=== PATIENT | female | born 1945 | race Caucasian/White ===

== ENCOUNTER → 2016-12-23 | Outpatient (CLI) | payer MEDICARE ==
[~2016-12-23] MED LIST: ESTR0.5T3 PO; MULT-974 PO; NFBIOT1000 PO; NIAC-4 PO; ROSU5TAB PO
== END ==
LOC: CARD 10:54
PROVIDERS: ATTEND Internal Medicine Cardiovascular Disease
DX: I34.1 Nonrheumatic mitral (valve) prolapse (principal); E78.4 Other hyperlipidemia; Z78.9 Other specified health status
CPT/HCPCS: 93306

== ENCOUNTER → 2016-12-29 | Outpatient (CLI) | payer MEDICARE ==
--- NOTE | 2016-12-30 22:25 | Diagnostic Imaging Report ---
INDICATION: Digital mammogram bilateral screening with tomosynthesis. This study was compared to prior exams of 12/29/15, 12/26/14 and 12/25/13. At this time, there are no current complaints. The current study was also evaluated with a Computer Aided Detection (CAD) system. FINDINGS: The fibroglandular tissue in both breasts is dense. This does limit the sensitivity of this exam. Overall, there does not appear to have been any significant change when compared to the prior study. No primary or secondary sign of malignancy is noted. IMPRESSION: There is no radiographic evidence for malignancy. ACR BI-RADS Category 1: Negative. Result letter will be mailed to the patient. Note: At least 10% of breast cancer is not imaged by mammography. Dictated by: Dictated on workstation # [id number]
== END ==
LOC: RAD 09:14
PROVIDERS: ATTEND Nurse Practitioner Family
DX: Z12.31 Encounter for screening mammogram for malignant neoplasm of breast (principal)
CPT/HCPCS: 77067

== ENCOUNTER → 2018-01-04 | Outpatient (CLI) | payer MEDICARE ==
--- NOTE | 2018-01-04 14:30 | Diagnostic Imaging Report ---
INDICATION: Routine screening. COMPARISON: 12/29/2016 and 12/29/2015. TECHNIQUE: 2D and 3D bilateral screening mammography was performed with CAD. FINDINGS: Both breasts are heterogeneously dense, limiting the sensitivity of mammography. Scattered benign-appearing calcifications are identified bilaterally. No mass or malignant appearing microcalcifications are seen. The axillae are unremarkable. IMPRESSION: No mammographic features suspicious for malignancy are identified. ACR BI-RADS Category 2: Benign findings. Result letter will be mailed to the patient. Note: At least 10% of breast cancer is not imaged by mammography. Dictated by: Dictated on workstation # [id number]
== END ==
LOC: RAD 08:00
PROVIDERS: ATTEND Nurse Practitioner Family
DX: Z12.31 Encounter for screening mammogram for malignant neoplasm of breast (principal)
CPT/HCPCS: 77067

== ENCOUNTER → 2019-01-12 | Outpatient (CLI) | payer MEDICARE ==
--- NOTE | 2019-01-12 16:28 | Diagnostic Imaging Report ---
INDICATION: Routine screening. COMPARISON: Comparison is made with prior mammograms from 01/04/2018 and 12/29/2016. TECHNIQUE: 2-D and 3-D bilateral screening mammography was performed. The current study was also evaluated with a Computer Aided Detection (CAD) system. 3-D tomosynthesis was also performed and reviewed. FINDINGS: Both breasts are heterogeneously dense, limiting the sensitivity of mammography. Scattered benign-appearing calcifications are noted. No mass or malignant-appearing microcalcifications are seen. The axillae are unremarkable. IMPRESSION: No mammographic features suspicious for malignancy are identified. ACR BI-RADS Category 2: Benign findings. Result letter will be mailed to the patient. Note: At least 10% of breast cancer is not imaged by mammography. Dictated by: Dictated on workstation # [id number]
== END ==
LOC: RAD 09:34
PROVIDERS: ATTEND Nurse Practitioner Family
DX: Z12.31 Encounter for screening mammogram for malignant neoplasm of breast (principal)
CPT/HCPCS: 77067

== ENCOUNTER → 2020-02-04 | Outpatient (CLI) | payer MEDICARE ==
--- NOTE | 2020-02-04 11:09 | Diagnostic Imaging Report ---
INDICATION: Routine screening. COMPARISON: 01/12/2019 and 01/04/2018. TECHNIQUE: 2D and 3D bilateral screening mammography was performed with CAD. FINDINGS: Both breasts are heterogeneously dense, limiting the sensitivity of mammography. There are benign calcifications in both breasts. No dominant mass or malignant appearing microcalcifications are seen. The axillae are unremarkable. IMPRESSION: No mammographic features suspicious for malignancy are identified. ACR BI-RADS Category 2: Benign findings. Result letter will be mailed to the patient. Note: At least 10% of breast cancer is not imaged by mammography. Dictated by: Dictated on workstation # [id number]
== END ==
LOC: RAD 08:22
PROVIDERS: ATTEND Nurse Practitioner Family
DX: Z12.31 Encounter for screening mammogram for malignant neoplasm of breast (principal)
CPT/HCPCS: 77063; 77067

== ENCOUNTER 2020-05-07 05:30 | Outpatient (RCR) | payer MEDICARE ==
[~2020-05-07] VITALS: Ht 160 cm; Wt 63.6 kg
[~2020-05-07 05:30] MED LIST changes: +ASCO500C17 PO; +CHOL100045 PO; +ESTR0.5T PO; +GLUC-173 PO; +MULT-1136 PO; +TURM538C PO
== END 2020-05-07 10:09 | disposition home or self-care (01) ==
LOC: PREOP 05:30
PROVIDERS: ATTEND Internal Medicine
DX: Z01.812 Encounter for preprocedural laboratory examination (principal); Z12.11 Encounter for screening for malignant neoplasm of colon; Z80.0 Family history of malignant neoplasm of digestive organs; Z86.010 Personal history of colon polyps
CPT/HCPCS: 87635

== ENCOUNTER 2020-05-09 07:54 | Day surgery (SDC) | payer MEDICARE ==
--- NOTE | 2020-04-29 09:15 | HISTORY AND PHYSICAL ---
DATE OF SERVICE: COLONOSCOPY HISTORY AND PHYSICAL HISTORY OF PRESENT ILLNESS: The patient is a 75-year-old white female referred by Dr. Mckeon for surveillance colonoscopy. Her father was diagnosed with colon cancer at age of 59. She has had some past adenomas removed. I last performed colonoscopy on her in 09/2013 at which time she had a hyperplastic polyp removed from the rectosigmoid junction. There was a polypoidal looking area at the hepatic flexure, but it turned out to be some nonspecific inflammation with a benign lymph node aggregates. The patient reports that generally she has been feeling well. She has had arthroscopic knee surgery in 10/2013 on the right, in 10/2019 on the left, both for meniscal tears. She has had no other surgical procedures over the last 6 years. PAST MEDICAL HISTORY: Significant for hyperlipidemia and past hypertension. Currently, she is not taking any medication for high blood pressure, but does see Dr. Alfaro. She has mitral valve prolapse without murmur. She has no known history of coronary artery disease. MEDICATIONS ON ADMISSION: Include estradiol 0.25 mg daily, Crestor 2.5 mg daily, turmeric daily, glucosamine chondroitin daily, vitamin C 500 mg daily, and vitamin D 5000 units daily. FAMILY HISTORY: Most pertinent for father who was diagnosed with colon cancer at the age of 59, not aware of any other family history for colon cancer. PHYSICAL EXAMINATION: GENERAL: Reveals a white female appeared to be in no acute distress, appearing younger than her stated age. VITAL SIGNS: Weight 145.6 pounds, stable. Initial blood pressure 164/92, when repeated 140/82. HEENT: Unremarkable. Mallampati I oropharyngeal configuration. Oral cavity clear. CHEST: Clear to auscultation. CARDIOVASCULAR: Revealed a regular rate and rhythm without murmur, S3 or S4. ABDOMEN: Soft, supple without mass, organomegaly or tenderness. EXTREMITIES: Reveal no cyanosis, clubbing or edema. ASSESSMENT AND PLAN: The patient was set up for surveillance colonoscopy on 05/09. She reports that she has been intolerant to previous prep due to the taste which led to nausea, so we will be utilizing the MiraLax prep, which I think she had last time and tolerated well. She has nausea with narcotics frequently, so we will be in listing anesthesia for Diprivan based anesthesia. I thank you for the referral of this pleasant lady. Job ID: [id number] DocumentID: [id number] Dictated Date: 04/21/2020 15:44:23 Customer Quality Specialist Date: 04/21/2020 16:00:19 Dictated By: WINSTON FORBES MD
[~2020-05-09] VITALS: Ht 160 cm; Wt 63.6 kg
[2020-05-09] MEDS ORDERED: LACTATED RINGERS 1,000 ML IV ONE (08:03)
--- NOTE | 2020-05-09 08:12 | Pre-Op Note & Conscious Sedat ---
Pre-Operative Progress Note H&P Reviewed The H&P was reviewed, patient examined and no changes noted. Date H&P Reviewed: May 09, 2020 Time H&P Reviewed: 08:12 Conscious Sedation Pre-Proced ASA Score 2 For ASA 3 and 4: Consider anesthesia and medical clearance. Also, for patients with a history of failed moderate sedation consider anesthesia. Airway Lungs Heart ASA score ASA 1: a normal healthy patient ASA 2: a patient with a mild systemic disease (mid diabetes, controlled hypertension, obesity ASA 3: a patient with a severe systemic disease that limits activity (angina, COPD, prior Myocardial infarction) ASA 4: a patient with an incapacitating disease that is a constant threat to life (CHF, renal failure) ASA 5: a moribund patient not expected to survive 24 hrs. (ruptured aneurysm) ASA 6: a declared brain- patient whose organs are being harvested. For emergent operations, add the letter E after the classification Mallampati Classification Grade 2 Sedation Plan Analgesia, Amnesia, Plan communicated to team members, Discussed options with patient/fam, Discussed risks with patient/fam The patient is an appropriate candidate to undergo the planned procedure, sedation, and anesthesia. The patient immediately re-assessed prior to indication. WINSTON FORBES MD May 09, 2020 08:12
[2020-05-09] MEDS ORDERED: LACTATED RINGERS 1,000 ML IV STA (08:14)
[2020-05-09] MEDS ORDERED: LIDOCAINE JELLY 2% 6 ML SYRINGE MM PRN (08:15)
[2020-05-09 08:20] VITALS: BP 103/58
[2020-05-09] MEDS ORDERED: LIDOCAINE JELLY 2% 6 ML SYRINGE ONE (09:23)
[2020-05-09] MEDS ORDERED: proPOfol 200 MG/20 ML (DIPRIVAN) VIAL IV ONE (09:24)
[2020-05-09 10:09] VITALS: BP 89/60
[2020-05-09 10:14] VITALS: BP 97/57
--- NOTE | 2020-05-09 10:17 | Anesthesia-General Post-Op ---
MAC Patient Condition Mental Status/LOC: Same as Preop Cardiovascular: Satisfactory Nausea/Vomiting: Absent Respiratory: Satisfactory Pain: Controlled Complications: Absent Post Op Complications Complications None Follow Up Care/Instructions Patient Instructions None needed. Anesthesiology Discharge Order Discharge Order Patient is doing well, no complaints, stable vital signs, no apparent adverse anesthesia problems. CHIOMA MOSCOSO DO May 09, 2020 10:17
[2020-05-09 10:20] VITALS: BP 104/60
[2020-05-09 10:50] VITALS: BP 107/69
[2020-05-09 11:15] VITALS: BP 107/69
--- NOTE | 2020-05-09 16:45 | OPERATIVE REPORT ---
DATE OF SERVICE: COLONOSCOPY SUMMARY INDICATION FOR THE PROCEDURE: Screening colonoscopy, family history of colon cancer. DESCRIPTION OF PROCEDURE: The patient was placed in the left lateral decubitus position. Prior to undergoing colonoscopy, digital rectal evaluation was performed. Anal sphincter tone was normal and the perianal reflexes intact. No abnormalities were noted on digital inspection of the anal canal or distal rectal vault. The colonoscope was then inserted into the rectum and under direct visualization advanced to the cecum. The cecum was identified by identification of the ileocecal valve and cecal strap. Photographic documentation was obtained. Quality of prep was good. Procedure was done under Diprivan anesthesia. FINDINGS: There was no evidence for internal or external hemorrhoids. Present in the distal rectum was a diminutive 3 x 5 mm sessile polyp. It was biopsied and ablated and submitted for histopathology with no significant blood loss. Remainder of the rectum, sigmoid colon, descending colon, transverse colon, ascending colon and cecum were unremarkable. No evidence for diverticular disease or other abnormalities were noted. ASSESSMENT: One diminutive polyp was removed from the distal rectum. If this does not return to vendor to be in the adenoma family, it is debatable as to whether or not repeat surveillance colonoscopy in 5 years would be recommended. It will be pending patient's overall health. I thank you for the referral of this pleasant lady. Job ID: [id number] DocumentID: [id number] Dictated Date: 05/09/2020 10:29:56 Class B Driver Date: 05/09/2020 16:45:03 Dictated By: WINSTON FORBES MD
== END 2020-05-09 11:15 | disposition home or self-care (01) ==
LOC: ENDO 07:54
PROVIDERS: ATTEND Internal Medicine
DX: Z12.11 Encounter for screening for malignant neoplasm of colon (principal); K62.1 Rectal polyp; I10 Essential (primary) hypertension; E78.5 Hyperlipidemia, unspecified; Z79.899 Other long term (current) drug therapy; Z80.0 Family history of malignant neoplasm of digestive organs
CPT/HCPCS: 88305

== ENCOUNTER → 2020-10-17 | Outpatient (CLI) | payer MEDICARE | LOC: CARD 13:47 | PROVIDERS: ATTEND Nurse Practitioner Family | DX: I08.0 Rheumatic disorders of both mitral and aortic valves (principal) | CPT/HCPCS: 93306 ==

== ENCOUNTER → 2021-02-17 | Outpatient (CLI) | payer MEDICARE ==
[~2021-02-17] MED LIST changes: +CHOL10004 PO; -CHOL100045 PO
--- NOTE | 2021-02-17 09:17 | Diagnostic Imaging Report ---
INDICATION: 75 year-old asymptomatic postmenopausal female. COMPARISON: 11/28/2008 FINDINGS: AP Spine L1-L4: [BMD (g/cm2): 1.109] [T-Score: -0.8] [Z-Score: 1.1] [BMD Previous: 1.233] [BMD % Change: -10.1] LT Hip Neck: [BMD (g/cm2): 0.831] [T-Score: -1.5] [Z-Score: 0.6] LT Hip Total: [BMD (g/cm2):0.932] [T-Score:-0.6] [Z-Score: 1.3] [BMD Previous: 1.024] [BMD % Change: -9.0] RT Hip Neck: [BMD (g/cm2):0.840] [T-Score:-1.4] [Z-Score:0.7] RT Hip Total: [BMD (g/cm2):0.928] [T-score:-0.6] [Z-Score:1.3] [BMD Previous:1.004] [BMD % Change:-7.6] *Indicates significant change from prior examination based on 95% confidence level. World Health Organization criteria for BMD interpretation classify patients as Normal (T-score at or above -1.0), Osteopenic (T-score between -1.0 and -2.5) or Osteoporotic (T-score at or below -2.5). LIMITATIONS AND MODIFICATION: None. FRACTURE RISK (FRAX SCORE): The ten year probability of (%): Major Osteoporotic Fracture: [12.6] Hip Fracture: [2.9] IMPRESSION: 1. Osteopenia (Low bone mass). 2. No statistically significant change in bone mineral density since prior examination. 3. See below National Osteoporosis Foundation guidelines on when to potentially initiate pharmacologic therapy. Based on the National Osteoporosis Foundation Guidelines, pharmacologic treatment should be initiated in any of the following, unless clinical conditions suggest otherwise: * Any patient with prior fragility fracture of the hip or vertebrae. A spine fracture indicates 5X risk for subsequent spine fracture and 2X risk for subsequent hip fracture. * Osteoporosis (T-score <-2.5). * Postmenopausal women and men age 50 and older with low bone mass/osteopenia (T-score between -1.0 and -2.5) by DXA and 10-year major osteoporotic fracture greater than 20% or a 10-year probability of hip fracture greater than 3%. These fracture risks are supplied above in the FRAX score, if applicable. * Clinician judgement and/or patient preferences may indicate treatment for people with 10-year fracture probabilities above or below these levels. Dictated by: Dictated on workstation # [id number]
--- NOTE | 2021-02-17 14:40 | Diagnostic Imaging Report ---
EXAMINATION: Digital mammogram bilateral screening with CAD. INDICATION: Screening. COMPARISON: This study was compared to the prior exams of 02/04/2020, 01/12/2019, and 01/04/2018. At this time, there are no current complaints. FINDINGS: The fibroglandular tissue in both breasts is heterogeneously dense. This does limit the sensitivity of this exam. Overall, there does not appear to have been any significant change when compared to the prior study. No primary or secondary sign of malignancy is noted. IMPRESSION: There is no radiographic evidence for malignancy. ACR BI-RADS Category 1: Negative. Result letter will be mailed to the patient. Note: At least 10% of breast cancer is not imaged by mammography. Dictated by: Dictated on workstation # [id number]
== END ==
LOC: RAD 08:00
PROVIDERS: ATTEND Nurse Practitioner Family
DX: Z12.31 Encounter for screening mammogram for malignant neoplasm of breast (principal); M85.80 Other specified disorders of bone density and structure, unspecified site; Z78.0 Asymptomatic menopausal state
CPT/HCPCS: 77063; 77067; 77080

== ENCOUNTER → 2022-02-18 | Outpatient (CLI) | payer MEDICARE ==
--- NOTE | 2022-02-18 13:41 | Diagnostic Imaging Report ---
Indication: Routine screening. Comparison is made with prior mammograms from 02/17/2021 and 02/04/2020. 2-D and 3-D bilateral screening mammography was performed with CAD. Both breasts are heterogeneously dense, limiting the sensitivity of mammography. There are scattered benign calcifications. No mass or malignant-appearing microcalcifications are seen. Axillae are unremarkable. IMPRESSION: BI-RADS Category 2 No mammographic features suspicious for malignancy are identified. ACR BI-RADS Category 2: Benign findings. Result letter will be mailed to the patient. Note: At least 10% of breast cancer is not imaged by mammography. Dictated by: Dictated on workstation # [id number]
== END ==
LOC: RAD 10:31
PROVIDERS: ATTEND Nurse Practitioner Family
DX: Z12.31 Encounter for screening mammogram for malignant neoplasm of breast (principal)
CPT/HCPCS: 77063; 77067

== ENCOUNTER → 2022-06-28 | Outpatient (CLI) | payer MEDICARE | LOC: CARD 09:31 | PROVIDERS: ATTEND Internal Medicine Cardiovascular Disease | DX: I08.0 Rheumatic disorders of both mitral and aortic valves (principal) | CPT/HCPCS: 93306 ==

== ENCOUNTER → 2023-02-23 | Outpatient (CLI) | payer MEDICARE ==
--- NOTE | 2023-02-23 12:05 | Diagnostic Imaging Report ---
INDICATION: Routine screening. COMPARISON: 02/18/2022 and 02/17/2021. TECHNIQUE: 2D and 3D bilateral screening mammography was performed with CAD. FINDINGS: Both breasts are heterogeneously dense, limiting the sensitivity of mammography. Rounded densities in both breasts are stable. No dominant mass or malignant-appearing microcalcifications are seen. There are benign calcifications bilaterally. The axillae are unremarkable. IMPRESSION: No mammographic features suspicious for malignancy are identified. ACR BI-RADS Category 2: Benign findings. Result letter will be mailed to the patient. Note: At least 10% of breast cancer is not imaged by mammography. Dictated by: Dictated on workstation # [id number]
== END ==
LOC: RAD 07:27
PROVIDERS: ATTEND Family Medicine
DX: Z12.31 Encounter for screening mammogram for malignant neoplasm of breast (principal)
CPT/HCPCS: 77063; 77067